=== PATIENT | female | born 1960 | race Caucasian/White ===

== ENCOUNTER 2018-11-23 12:49 | Emergency (ER) | payer MEDICAID ==
[~2018-11-23] VITALS: Ht 162.6 cm; Wt 93.0 kg
[~2018-11-23 12:49] MED LIST: GLUXR500
[2018-11-23 12:50] VITALS: BP_SYST 160
--- NOTE | 2018-11-23 12:55 | NUR ---
Placed in room 02 . Placed on library monitor, blood pressure machine and pulse oximeter. To gown for exam. Side rails up.
--- NOTE | 2018-11-23 12:56 | NUR ---
Pt brought by Orlin [id number], pt presents to ER with allergic reaction , stung by a bee, c/o cough , dry mough , headache, redness noted on neck, pt arrived on 10 L mask, skin pink and warm , cap refill <3, respirations even and unlabored.
[2018-11-23] MEDS ORDERED: methylPREDNISolone SOD SUCC/PF 62.5 MG/ML VIAL IM ONE (13:00)
[2018-11-23] MEDS ORDERED: IPRATROPIUM/ALBUTEROL SULFATE 3 ML AMPUL.NEB (DUONEB) INH ONE (13:00)
[2018-11-23] MEDS ORDERED: NACL 0.9% 1,000 ML IV ONE (13:00)
[2018-11-23] MEDS ORDERED: EPINEPHrine 1 MG/ML AMP IM ONE (13:00)
[2018-11-23] MEDS ORDERED: DIPHENHYDRAMINE INJ 50 MG/ML VIAL IM ONE (13:00)
--- NOTE | 2018-11-23 13:00 | NUR ---
Gladys Rivers at bedside examining patient
--- NOTE | 2018-11-23 13:02 | NUR ---
Patient brought in by ambulance after being stung by bee in back yard. Patient SOB and swelling in face. Patient is type I diabetic and did not take scheduled insulin this morning. Patient also does not check blood sugar regularly nor consistently. Patient AAOx4. Will continue to monitor.
[2018-11-23] MEDS ORDERED: DIPHENHYDRAMINE HCL 50 MG CAPSULE ONE (13:11)
[2018-11-23] MEDS ORDERED: INSULIN REGULAR, HUMAN 100 UNITS/ML, 10 ML VIAL SUBCUT ONE (13:15)
[2018-11-23] MEDS ORDERED: INSULIN REGULAR, HUMAN 10 UNITS/0.1 ML INJ ONE (13:41)
--- NOTE | 2018-11-23 14:45 | NUR ---
Patient given written and verbal discharge instructions and verbalizes understanding. ER MD discussed with patient the results and treatment provided. Patient in stable condition. ID arm band removed. IV catheter removed intact and dressing applied, no active bleeding. Rx of benadryl and prednisone given. Patient educated on pain management and to follow up with PMD. Pain Scale 0/10. Opportunity for questions provided and answered. Medication side effect fact sheet provided.
[2018-11-23 14:48] VITALS: BP_SYST 176
[2018-11-23] MEDS ORDERED: hydrALAZINE HCL 20 MG/ML VIAL IVP ONE (15:00)
== END 2018-11-23 12:55 | disposition home or self-care (01) ==
LOC: SED 12:49
DX: T63.441A Toxic effect of venom of bees, accidental (unintentional), initial encounter (principal); E10.65 Type 1 diabetes mellitus with hyperglycemia; I10 Essential (primary) hypertension; E78.5 Hyperlipidemia, unspecified; Y92.89 Other specified places as the place of occurrence of the external cause
CPT/HCPCS: 82962; 94640; 96372; 96374; 96375; 99283; J0171; J0360; J1200; J1815; J2930; J7030; J7620; Q0163; 96361

== ENCOUNTER 2021-02-24 10:42 | Emergency (ER) | payer MEDICAID ==
[~2021-02-24] VITALS: Ht 162.6 cm; Wt 96.2 kg
[2021-02-24 10:52] VITALS: BP_SYST 159
[2021-02-24] MEDS ORDERED: MORPHINE 4 MG INJ. 4 MG/ML VIAL IM ONE (11:30)
[2021-02-24 13:13] VITALS: BP_SYST 135
== END 2021-02-24 13:17 | disposition home or self-care (01) ==
LOC: SED 10:42
DX: O98.511 Other viral diseases complicating pregnancy, first trimester (principal); S90.32XA Contusion of left foot, initial encounter; S90.02XA Contusion of left ankle, initial encounter; Z3A.10 10 weeks gestation of pregnancy; X58.XXXA Exposure to other specified factors, initial encounter; Y93.89 Activity, other specified; Y92.89 Other specified places as the place of occurrence of the external cause; Y99.8 Other external cause status
CPT/HCPCS: 73610; 73630; 93971; 96372; 99284; J2270; 99283; 99285